=== PATIENT | female | born 1960 | race Caucasian/White ===

== ENCOUNTER 2018-09-20 10:16 | Emergency (ER) | payer SELFPAY ==
[2018-09-20] MEDS: SODIUM CHLORIDE 0.9% 1000ML 1,000 ML IV ONE (10:26)
[2018-09-20] MEDS: ONDANSETRON HCL 4 MG/2 ML SOL IV ONE ×2 (10:41→13:54)
[2018-09-20] MEDS ORDERED: MORPHINE SULFATE 10 MG/ML SOL ONE (10:45)
[2018-09-20] MEDS ORDERED: ONDANSETRON HCL 4 MG/2 ML SOL ONE ×2 (10:45→13:54)
[2018-09-20 10:47] LABS: BASOPHILS % (AUTO) 0 % (0-3); EOSINOPHILS % (AUTO) 0 % (0-9); HEMATOCRIT 53 % (35-47); HEMOGLOBIN 17.5 gm/dl (12.0-15.5); LYMPHOCYTES % (AUTO) 13.6 % (10-50); MEAN CORPUSCULAR HEMOGLOBIN 29.2 pg (27.0-32.0); MEAN CORPUSCULAR VOLUME 89 fL (81-99); MONOCYTES % (AUTO) 5.7 % (0-12); NEUTROPHILS % (AUTO) 80.1 % (37-80)
[2018-09-20] MEDS: MORPHINE SULFATE 10 MG/ML SOL IV ONE (10:56)
[2018-09-20 11:02] LABS: BILIRUBIN,TOTAL 1.4 mg/dl (0.2-1.0); CALCIUM 9.4 mg/dl (8.5-10.1); CARBON DIOXIDE 27.5 mEq/L (21-32); CREATININE 1.26 mg/dl (0.60-1.00); TOTAL PROTEIN 8.1 gm/dl (6.4-8.2)
[2018-09-20] MEDS: LACTATED RINGERS 1,000 ML IV ONE (12:10)
[2018-09-20 12:18] VITALS: TEMP 97.4
[2018-09-20 12:46] LABS: APPEARANCE,URINE Clear; BILIRUBIN,URINE NEGATIVE (NEGATIVE); COLOR,URINE Yellow; GLUCOSE, URINE (UA) NEGATIVE (NEGATIVE); KETONES,URINE NEGATIVE (NEGATIVE); LEUKOCYTE ESTERASE ,URINE NEGATIVE (NEGATIVE); NITRATE,URINE NEGATIVE (NEGATIVE); OCCULT BLOOD,URINE NEGATIVE (NEG-TRACE)
[2018-09-20 12:59] LABS: BACTERIA NEGATIVE (< 1+); CRYSTALS NEGATIVE (0-3 AVE/HPF); RBC,URINE NEG (0-3AV/HPF)
[2018-09-20 13:03] VITALS: RESP 18
[2018-09-20] MEDS ORDERED: HYDROMORPHONE 1 MG/ML SYRINGE ONE (13:54)
[2018-09-20] MEDS: HYDROMORPHONE HCL 2 MG/ML SOL IV ONE (13:55)
[2018-09-20 14:09] VITALS: BP 128/78; PULSE 64; O2SAT 98
== END 2018-09-20 14:05 | disposition short-term general hospital (02) | DRG 390 ==
LOC: ED 10:16
DX: K56.699 Other intestinal obstruction unspecified as to partial versus complete obstruction (principal); K43.9 Ventral hernia without obstruction or gangrene; R14.0 Abdominal distension (gaseous); R11.2 Nausea with vomiting, unspecified; E66.01 Morbid (severe) obesity due to excess calories
CPT/HCPCS: 74176; 80053; 81001; 83690; 85025; 93005; 96365; 96366; 96374; 96375; 99285; 99291; J2270; J2405; J1170